=== PATIENT | male | born 1995 | race Caucasian/White ===

== ENCOUNTER 2016-07-18 23:24 | Emergency (ER) | payer OTHER ==
[2016-07-19] MEDS ORDERED: HYDROCODONE/ACETAMINOPHEN 5-325 MG TABLET PO ONE (01:11)
[2016-07-19] MEDS ORDERED: PREDNISONE 20 MG TABLET PO ONE (01:12)
--- NOTE | 2016-07-19 01:12 | ER Document Report ---
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 He states he's been having chills over the past several days. He states he was placed on azithromycin twice by [facility], he states he has worsened and not improved. Patient denies smoking, denies any daily medications or any other medical problems. Patient has never been deployed. He states that over the past few days that when he gets up he throws up first thing in the morning including mucus. He reports persistent postnasal drainage. TRAVEL OUTSIDE OF THE [place] IN LAST 30 DAYS: No - Related Data Allergies/Adverse Reactions: No Known Allergies Allergy (Unverified 07/18/16 23:39) Past Medical History - General Information source: Patient - Social History Smoking Status: Never Smoker Chew tobacco use (# tins/day): No Frequency of alcohol use: Occasional Drug Abuse: None Lives with: Family Family History: Reviewed & Not Pertinent Patient has suicidal ideation: No Patient has homicidal ideation: No - Medical History Medical History: Negative Renal/ Medical History: Denies: Hx Peritoneal Dialysis Surgical Hx: Negative - Immunizations Immunizations up to date: Yes Hx Diphtheria, Pertussis, Tetanus Vaccination: Yes Review of Systems - Review of Systems Constitutional: See HPI EENT: See HPI Cardiovascular: No symptoms reported Respiratory: See HPI Gastrointestinal: No symptoms reported Genitourinary: No symptoms reported Male Genitourinary: No symptoms reported Musculoskeletal: No symptoms reported Skin: No symptoms reported Hematologic/Lymphatic: No symptoms reported Neurological/Psychological: No symptoms reported Physical Exam - Vital signs Vitals: Temp Pulse Resp BP Pulse Ox 98.9 F 91 16 151/90 H 95 07/18/16 23:30 07/18/16 23:30 07/18/16 23:30 07/18/16 23:30 07/18/16 23:30 Interpretation: Normal - General General appearance: Appears well, Alert In distress: None - HEENT Head: Normocephalic, Atraumatic Eyes: Normal Conjunctiva: Normal Extraocular movements intact: Yes Eyelashes: Normal Pupils: PERRL Ears: Normal External canal: Normal Tympanic membrane: Normal Sinus: Other - Some discomfort over the maxillary sinuses bilaterally Mouth/Lips: Normal Mucous membranes: Normal Pharynx: Erythema - Mild with what appears to be postnasal drip. No: Tonsillar hypertrophy Neck: Normal - Respiratory Respiratory status: No respiratory distress. No: Respiratory distress, Tachypnea Chest status: Nontender Breath sounds: Nonproductive cough - Patient cannot stop coughing, persistent nonproductive cough. No: Decreased air movement, Wheezing Chest palpation: Normal - Cardiovascular Rhythm: Regular. No: Tachycardia Heart sounds: Normal auscultation, S1 appreciated, S2 appreciated Murmur: No - Abdominal Inspection: Normal Distension: No distension Bowel sounds: Normal Tenderness: No: Tender Organomegaly: No organomegaly - Back Back: Normal, Nontender - Extremities General upper extremity: Normal inspection, Nontender, Normal color, Normal ROM , Normal temperature General lower extremity: Normal inspection, Nontender, Normal color, Normal ROM , Normal temperature, Normal weight bearing. No: Garima's sign - Neurological Neuro grossly intact: Yes Cognition: Normal Orientation: AAOx4 Warriors Mark Coma Scale Eye Opening: Spontaneous Mark Coma Scale Verbal: Oriented Warriors Mark Coma Scale Motor: Obeys Commands Mark Coma Scale Total: 15 Speech: Normal Motor strength normal: LUE, RUE, LLE, RLE Sensory: Normal - Psychological Associated symptoms: Normal affect, Normal mood - Skin Skin Temperature: Warm Skin Moisture: Dry Skin Color: Normal Course - Re-evaluation Re-evalutation: Patient with nonstop painful cough on exam, nonproductive, clear lungs, no hypoxia. Patient given [place] for this and stopped coughing and appears much improved on reexamination. Chest x-ray is unremarkable. Patient with persistent postnasal drip, reported chills, sinus congestion. Suspect sinus is the source, patient is extremely well appearing otherwise, no headache complaints, no nuchal rigidity, no abdominal tenderness. On Augmentin, providing symptom management, discussed follow-up and return precautions, patient states understanding and agreement - Vital Signs Vital signs: Temp Pulse Resp BP Pulse Ox 98.9 F 71 16 143/95 H 99 07/18/16 23:30 07/19/16 03:09 07/19/16 03:09 07/19/16 03:09 07/19/16 03:09 Discharge - Discharge Clinical Impression: Cough Sinusitis Qualifiers: Sinusitis location: unspecified location Chronicity: subacute Qualified Code(s) : J01.90 - Acute sinusitis, unspecified Vomiting Qualifiers: Vomiting type: unspecified Vomiting Intractability: non-intractable Nausea presence: without nausea Qualified Code(s): R11.11 - Vomiting without nausea Condition: Stable Disposition: HOME, SELF-CARE Additional Instructions: Chest x-ray is normal. Lungs on examination are normal. Take Augmentin as directed for your ongoing sinus infection, I recommended a probiotic source or supplement such as activia yogurt to avoid diarrhea on this medication. Take Tessalon for cough during the day. You have been given hydrocodone tonight and to take as a cough suppressant at night because of the persistent cough. Follow-up with primary care. You may need a referral to ENT if your sinuses do not improve. Return to the emergency department for any concerning or worsening symptoms. Prescriptions: Hydrocodone Bit/Homatropine [Hycodan Syrup 5-1.5 mg/5 ml Ud Cup] 5 ml PO Q4HP PRN #120 ml PRN Reason: Benzonatate [Tessalon Perle 100 mg Capsule] 100 mg PO Q8HP PRN #20 cap PRN Reason: Amox Tr/Potassium Clavulanate [Augmentin 875-125 Tablet] 1 tab PO BID 7 Days
[2016-07-19] MEDS ORDERED: PREDNISONE 20 MG TABLET ONE (02:04)
[2016-07-19 03:11] VITALS: BP 143/95
== END 2016-07-19 03:09 | disposition home or self-care (01) ==
LOC: ER 23:24
DX: J01.90 Acute sinusitis, unspecified (principal); R05 Cough; R09.81 Nasal congestion; R11.11 Vomiting without nausea
CPT/HCPCS: 99283; 71020; J7512